=== PATIENT | male | born 1960 | race Caucasian/White ===

== ENCOUNTER 2021-12-13 09:09 | Outpatient (CLI) | payer MEDICAID ==
--- NOTE | 2021-12-13 11:06 | CT Report ---
PROCEDURE: Low Dose Lung Cancer Screen INDICATIONS: SMOKER TECHNIQUE: Noncontrast low-dose images were acquired from the pulmonary apices to the posterior costophrenic ang les. Multiplanar MIP reformats were then acquired. For radiation dose reduction, the following was used: automated exposure control, adjustment of mA and/or kV according to patient size. COMPARISON: None. FINDINGS: Image quality: Excellent. Lungs and pleura: Mild centrilobular and trace paraseptal emphysema. There are occasional scattered areas of slight subpleural reticulation and trace pleural thickening, but no suspicious nodules, mass es, groundglass opacities, or dense consolidations. No pleural effusion or pneumothorax. No pleural c alcification. Mediastinum: Heart size is normal. No pericardial effusion. No mediastinal adenopathy by size crit eria. Thoracic aorta and central pulmonary arteries are normal in size. Esophagus is normal in jadyn patricia. No hiatal hernia. Bones and chest wall: Thick, prominent anterior bridging osteophytes in the midthoracic spine. No little spicious bony lesions. No vertebral body compression fractures. No axillary or supraclavicular nam opathy by size criteria. Incompletely imaged thyroid gland but grossly normal size. Abdomen: Visualized upper abdomen solid organs and bowel loops appear normal in the absence of contr ast. IMPRESSION: 1. No suspicious lung nodules. Lung RADS category 1, negative. Continue annual low-dose screening as long as patient meets establish ed criteria. 2. Mild emphysematous change. Reviewed by: She Angulo MD on 12/13/2021 11:05 AM PDT Approved by: She Angulo MD on 12/13/2021 11:05 AM PDT Station ID: [id number]
== END 2021-12-13 09:10 | disposition home or self-care (01) ==
LOC: DI 09:09
PROVIDERS: ATTEND Nurse Practitioner Family
DX: Z12.2 Encounter for screening for malignant neoplasm of respiratory organs (principal); J43.9 Emphysema, unspecified; F17.210 Nicotine dependence, cigarettes, uncomplicated

== ENCOUNTER 2022-01-09 14:07 | Outpatient (CLI) | payer MEDICAID ==
--- NOTE | 2022-01-09 17:07 | MRI Report ---
PROCEDURE: Cervical Spine W/O INDICATIONS: CERVICAL RADICULOPATHY TECHNIQUE: Noncontrast sagittal T1 spin echo and T2 fast spin echo, sagittal STIR, foraminal oblique sagittal T2 fast spin echo, and axial gradient echo or T2 fast spin echo through the cervical spine. COMPARISON: None. FINDINGS: Image quality: Excellent. Alignment and Curvature: There is mild, approximately 0 mm of C2-C3 anterolisthesis. There is mild, approximately 3 mm of C4-C5 retrolisthesis. Bone Marrow: Modic type II reactive endplate changes noted adjacent to the C3 on C4, C4-C5 and C5-C6 and C6-C7 discs. Spinal Cord: Increased T2 signal noted in the cervical spinal cord level of the C4 and C5 vertebral b odies likely reflective of mild edema related to severe central canal stenosis with spinal cord compr ession. No cerebellar tonsillar herniation. Paraspinous Soft Tissues: No paravertebral masses. Prevertebral soft tissues are normal in thicknes s. C2-C3: Loss of disc signal. Mild, diffuse disc bulge. Severe right and moderate left facet hypertrop hy. Hizo-[id number]-[id number] narrowing of the central canal. Severe right and moderate left neural foraminal narrowing with compression of the exiting right C3 nerve root. C3-C4: Loss of disc signal and height. Moderate, diffuse disc bulge. Mild bilateral facet hypertrop hy. Moderate bilateral uncovertebral joint hypertrophy. Severe narrowing of the central canal with ma rked compression of the cervical spinal cord. Severe bilateral neural foraminal narrowing with compre ssion of the exiting bilateral C4 nerve roots. C4-C5: Loss of disc signal and height. Severe, diffuse disc bulge. [id number] bilateral facet hypertrophy. Moderate bilateral uncovertebral joint hypertrophy. Severe narrowing of the central kacey l with marked compression of the cervical spinal cord. Severe bilateral neural foraminal narrowing wi th compression of the exiting C5 nerve roots. C5-C6: Loss of disc signal and height. Moderate, diffuse disc bulge. Mild bilateral facet hypertroph y. Mild bilateral uncovertebral joint hypertrophy. Severe narrowing of the central canal with babar brandon of the cervical spinal cord. Severe bilateral neural foraminal narrowing with compression of the exiting C6 nerve roots. C6-C7: Loss of disc signal and height. Moderate, diffuse disc bulge. Mild bilateral facet hypertroph y. Mild bilateral uncovertebral joint hypertrophy. Severe narrowing of the central canal with mild co mpression cervical spinal cord. Moderate bilateral neural foraminal narrowing. C7-T1: Loss of disc signal. Mild, diffuse disc bulge. No central stenosis. No neuroforaminal narrowi ng. No neural compression. IMPRESSION: 1. Multilevel degenerative disc disease. 2. Multilevel facet arthropathy. 3. Severe C3-C4, C4-C5, C5-C6 and C6-C7 central canal stenosis with marked compression of the cervica l spinal cord at the level of the C3-C4 and C4-C5 discs with mild associated spinal cord edema. 4. Severe right C2-C3 neural foraminal narrowing with compression of the exiting right C3 nerve root. Severe bilateral C3-C4, C4-C5 and C5-C6 neural foraminal narrowing with compression of the bilateral C4, C5 and C6 nerve roots. Reviewed by: Sultana Silveira MD, PhD on 01/09/2022 5:06 PM PDT Approved by: Sultana Silveira MD, PhD on 01/09/2022 5:06 PM PDT Station ID: [id number]
== END 2022-01-09 14:08 | disposition home or self-care (01) ==
LOC: DI 14:07
PROVIDERS: ATTEND Nurse Practitioner Family
DX: M47.812 Spondylosis without myelopathy or radiculopathy, cervical region (principal); M48.02 Spinal stenosis, cervical region; M50.31 Other cervical disc degeneration, high cervical region